=== PATIENT | male | born 1980 | race Caucasian/White ===

== ENCOUNTER 2017-03-17 22:09 | Emergency (ER) | payer MEDICAID ==
[~2017-03-17] VITALS: Ht 172.7 cm; Wt 95.3 kg
[2017-03-17] MEDS ORDERED: NKM (22:16)
[2017-03-17 22:22] VITALS: BP 141/91
[2017-03-17] MEDS ORDERED: Norco 5mg/325mg tab PO ONE (22:45)
[2017-03-17] MEDS ORDERED: IBUPROFEN600 MG ORAL (23:50)
[2017-03-17 23:53] VITALS: BP 141/91
--- NOTE | 2017-03-18 03:28 | Emergency Room Report ---
History of Present Illness General Chief Complaint: Multiple Trauma/Fall Source: Patient Present Illness HPI 37-year-old male presents to ED complaining of right hand and wrist pain status post fall. States a mechanical trip and fall today. Landing on his right hand and wrist. Denies any other injuries. Patient states pain is sharp, 8/10, nonradiating. Patient is concerned that he broke this wrist recently. No other aggravating relieving factors. Denies any other associated symptoms Allergies: Coded Allergies: No Known Allergies (Unverified , 03/17/17) Patient History Past Medical History: none Past Surgical History: none Pertinent Family History: none Social History: Denies: smoking, alcohol use, drug use Immunizations: UTD Reviewed Nursing Documentation: PMH: Agreed, PSxH: Agreed Nursing Documentation-PMH Past Medical History: No Stated History Review of Systems All Other Systems: negative except mentioned in HPI Physical Exam Vital Signs Date Time Temp Pulse Resp B/P (MAP) Pulse Ox O2 Delivery O2 Flow Rate FiO2 03/17/17 22:12 98.8 112 16 141/91 94 Room Air Sp02 EP Interpretation: reviewed, normal General Appearance: no apparent distress, alert, GCS 15, non-toxic Head: normocephalic, atraumatic Eyes: bilateral eye normal inspection, bilateral eye PERRL ENT: hearing grossly normal, normal pharynx, no angioedema, normal voice Neck: full range of motion, supple/symm/no masses Respiratory: chest non-tender, lungs clear, normal breath sounds, speaking full sentences Cardiovascular #1: regular rate, rhythm, no edema Cardiovascular #2: 2+ carotid (R), 2+ carotid (L), 2+ radial (R), 2+ radial (L) , 2+ dorsalis pedis (R), 2+ dorsalis pedis (L) Gastrointestinal: normal bowel sounds, non tender, soft, non-distended, no guarding, no rebound Rectal: deferred Genitourinary: normal inspection, no CVA tenderness Musculoskeletal: back normal, gait/station normal, normal range of motion, tender - R wrist Neurologic: alert, oriented x3, responsive, motor strength/tone normal, sensory intact, speech normal Psychiatric: judgement/insight normal, memory normal, mood/affect normal, no suicidal/homicidal ideation Reflexes: 3+ bicep (R), 3+ bicep (L), 3+ tricep (R), 3+ tricep (L), 3+ knee (R) , 3+ knee (L) Skin: normal color, no rash, warm/dry, well hydrated Lymphatic: no adenopathy Procedures Splinting Splinting : Pre-Made Type: velcro Splint: wrist Pre-Proc Neuro Vasc Exam: normal Post-Proc Neuro Vasc Exam: normal Patient Tolerated: Well Complications: None Medical Decision Making Diagnostic Impression: Primary Impression: Wrist injury Qualified Codes: S69.91XA - Unspecified injury of right wrist, hand and finger (s), initial encounter ER Course Hospital Course 37-year-old M presents to ED complaining of R wrist pain s/p trip and fall Differential diagnoses include: Fracture, dislocation, sprain, contusion Clinical course Patient placed on stretcher. After initial history and physical, I ordered pain medications and Xrays of R hand/wrist Xrays prelim read shows no acute fracture/dislocation. placed in wrist splint Diagnosis - wrist injury Stable and discharged to home with prescription for Motrin. apply ice, keep elevated. weight bear as tolerated. Followup with PMD. Return to ED if symptoms recur or worsen Other X-Ray Diagnostic Results Other X-Ray Diagnostic Results #1: X-Ray ordered: R hand # of Views/Limited Vs Complete: 3 View Indication: Pain EP Interpretation: Yes Interpretation: no dislocation, no soft tissue swelling, no fractures Impression: No acute disease Electronically Signed by: Electronically signed by Daniel Mariee MD Other X-Ray Diagnostic Results #2: X-Ray ordered: Right wrist # of Views/Limited Vs Complete: 3 View Indication: Pain EP Interpretation: Yes Interpretation: no dislocation, no soft tissue swelling, no fractures Impression: No acute disease Electronically Signed by: Electronically signed by Daniel Mariee MD Last Vital Signs Date Time Temp Pulse Resp B/P (MAP) Pulse Ox O2 Delivery O2 Flow Rate FiO2 03/17/17 23:53 98.8 16 141/91 94 Room Air 03/17/17 22:22 86 Status: improved Disposition: HOME, SELF-CARE Condition: Stable Scripts Ibuprofen* (MOTRIN*) 600 Mg Tablet 600 MG ORAL Q8H Y for For Pain, #30 TAB 0 Refills Prov: DANIEL MARIEE M.D. 03/17/17 Patient Instructions: Wrist Pain, [id number] DANIEL MARIEE M.D. Mar 18, 2017 03:28
--- NOTE | 2017-03-18 10:40 | Diagnostic Imaging Report ---
Indication: Pain Findings: 3 views of the right wrist were obtained. No acute fractures identified. No malalignment seen. Soft tissues are unremarkable. Impression: Negative study
--- NOTE | 2017-03-18 10:40 | Diagnostic Imaging Report ---
Indication: pain Findings: 3 views of the right hand were obtained. Normal bony mineralization and alignment are demonstrated. No acute fractures, erosions, or periosteal reaction are seen. Soft tissues are unremarkable. Impression: No acute findings.
== END 2017-03-17 23:53 | disposition home or self-care (01) ==
LOC: EMR 23:15
DX: M79.641 Pain in right hand (principal); S69.81XA Other specified injuries of right wrist, hand and finger(s), initial encounter; W01.0XXA Fall on same level from slipping, tripping and stumbling without subsequent striking against object, initial encounter; Y92.89 Other specified places as the place of occurrence of the external cause
CPT/HCPCS: 99284

== ENCOUNTER 2018-06-16 16:51 | Emergency (ER) | payer MEDICAID ==
[~2018-06-16] VITALS: Ht 172.7 cm; Wt 75.3 kg
[~2018-06-16 16:51] MED LIST: IBUPROFEN600 MG ORAL; NKM
[2018-06-16 17:10] VITALS: BP 105/62
--- NOTE | 2018-06-16 17:10 | NUR ---
ED Nurse Note: pt walked in c/o abd pain, n/v/d started today, denies eating anything unusual. Pt AA&ox4, gcs=15, skin warm and dry, resp even and unlabored, -n/v/d, ambulates w/ steady gait. Pt on equipment monitor phototypesetting, vss, and kid at the bedside, will continue to monitor.
--- NOTE | 2018-06-16 17:16 | Emergency Room Report ---
History of Present Illness General Chief Complaint: Nausea, Vomiting, and Diarrhea Source: Patient Present Illness HPI Patient presents with complaints of vomiting and diarrhea Reports that he has a history of fatty liver Patient reports taking PCP and marijuana and feels that this exacerbated her symptoms Denies any fevers denies any chest pain denies any rash Pain is epigastric and bilateral abdomen and pressure like Allergies: Coded Allergies: No Known Allergies (Unverified , 06/16/18) Patient History Past Medical History: see triage record Pertinent Family History: none Reviewed Nursing Documentation: PMH: Agreed; PSxH: Agreed Nursing Documentation-PMH Past Medical History: No History, Except For Review of Systems All Other Systems: negative except mentioned in HPI Physical Exam Vital Signs Date Time Temp Pulse Resp B/P (MAP) Pulse Ox O2 Delivery O2 Flow Rate FiO2 06/16/18 17:01 99.3 119 16 100/62 94 Room Air Sp02 EP Interpretation: reviewed, normal General Appearance: well appearing, no apparent distress Head: normocephalic, atraumatic Eyes: bilateral eye PERRL, bilateral eye EOMI ENT: hearing grossly normal, normal pharynx, TMs + canals normal, uvula midline Neck: full range of motion, supple, no meningismus, no bony tend Respiratory: lungs clear, normal breath sounds, no rhonchi, no respiratory distress, no retraction, no accessory muscle use Cardiovascular #1: normal peripheral pulses, regular rate, rhythm, no edema, no gallop, no JVD, no murmur Gastrointestinal: normal bowel sounds, non tender, soft, no mass, no organomegaly, non-distended, no guarding, no hernia, no pulsatile mass, no rebound Genitourinary: no CVA tenderness Musculoskeletal: normal inspection Neurologic: oriented x3, responsive, buffer copper III-XII nml as tested, motor strength/ tone normal, sensory intact Psychiatric: mood/affect normal Skin: normal color, no rash, warm/dry, palpation normal Lymphatic: normal inspection, no adenopathy Medical Decision Making Diagnostic Impression: Primary Impression: Nausea, vomiting, and diarrhea Additional Impression: Substance abuse ER Course With the history exam and presentation, multiple differentials considered, including but not limited to appendicitis, gastritis, cholecystitis, diverticulitis Patient provided with anti-emetics pain medication and hydration kidney function is elevated I discussed this with the patient and family PCP and other drug abuse can have irreversible damage to the patient's organs he requires repeat blood work to evaluate the kidney function in the next 3 months However requires more urgent follow-up the next several days with primary physician Labs Test 06/16/18 18:00 White Blood Count 10.6 K/UL (4.8-10.8) Red Blood Count 6.27 M/UL (4.70-6.10) Hemoglobin 18.2 G/DL (14.2-18.0) Hematocrit 56.6 % (42.0-52.0) Mean Corpuscular Volume 90 FL (80-99) Mean Corpuscular Hemoglobin 29.1 PG (27.0-31.0) Mean Corpuscular Hemoglobin Concent 32.2 G/DL (32.0-36.0) Red Cell Distribution Width 11.7 % (11.6-14.8) Platelet Count 229 K/UL (150-450) Mean Platelet Volume 5.4 FL (6.5-10.1) Neutrophils (%) (Auto) % (45.0-75.0) Lymphocytes (%) (Auto) % (20.0-45.0) Monocytes (%) (Auto) % (1.0-10.0) Eosinophils (%) (Auto) % (0.0-3.0) Basophils (%) (Auto) % (0.0-2.0) Differential Total Cells Counted 100 Neutrophils % (Manual) 93 % (45-75) Lymphocytes % (Manual) 3 % (20-45) Monocytes % (Manual) 4 % (1-10) Eosinophils % (Manual) 0 % (0-3) Basophils % (Manual) 0 % (0-2) Band Neutrophils 0 % (0-8) Platelet Estimate Adequate Platelet Morphology Normal Red Blood Cell Morphology Normal Sodium Level 136 MMOL/L (136-145) Potassium Level 5.2 MMOL/L (3.5-5.1) Chloride Level 98 MMOL/L (98-107) Carbon Dioxide Level 27 MMOL/L (21-32) Anion Gap 11 mmol/L (5-15) Blood Urea Nitrogen 23 mg/dL (7-18) Creatinine 2.4 MG/DL (0.55-1.30) Estimat Glomerular Filtration Rate 30.4 mL/min (>60) Glucose Level 110 MG/DL (74-106) Calcium Level 9.5 MG/DL (8.5-10.1) Total Bilirubin 0.5 MG/DL (0.2-1.0) Aspartate Amino Transf (AST/SGOT) 22 U/L (15-37) Alanine Aminotransferase (ALT/SGPT) 41 U/L (12-78) Alkaline Phosphatase 82 U/L (46-116) Total Protein 8.6 G/DL (6.4-8.2) Albumin 4.5 G/DL (3.4-5.0) Globulin 4.1 g/dL Albumin/Globulin Ratio 1.1 (1.0-2.7) Lipase 74 U/L (73-393) Last Vital Signs Date Time Temp Pulse Resp B/P (MAP) Pulse Ox O2 Delivery O2 Flow Rate FiO2 06/16/18 17:01 99.3 119 16 100/62 94 Room Air Status: improved Disposition: HOME, SELF-CARE Condition: Improved Scripts Mag Hydrox/Al Hydrox/Simeth (MAALOX MAXIMUM STRENGTH SUSP) 355 Ml Oral.susp 10 ML PO QHS for 5 Days, ML Prov: Angélica Duron DO 06/16/18 Famotidine (PEPCID AC) 20 Mg Tablet 20 MG PO DAILY, #12 TAB Prov: Angélica Duron DO 06/16/18 Ondansetron (Zofran) 4 Mg Tablet 4 MG ORAL Q6H PRN for Nausea & Vomiting, #12 TAB Prov: Angélica Duron DO 06/16/18 Additional Instructions: Patient is provided with the discharge instructions notified to follow up with primary doctor in the next 2-3 days otherwise return to the er with any worsening symptoms. Please note that this report is being documented using [employer] technology. This can lead to erroneous entry secondary to incorrect interpretation by the dictating instrument. Angélica Duron DO Jun 16, 2018 17:16
[2018-06-16 18:17] LABS: HEMATOCRIT 56.6 % (42.0-52.0); MEAN CORPUSCULAR VOLUME 90 FL (80-99); PLATELET COUNT 229 K/UL (150-450); RED BLOOD COUNT 6.27 M/UL (4.70-6.10); RED CELL DISTRIBUTION WIDTH 11.7 % (11.6-14.8); WHITE BLOOD COUNT 10.6 K/UL (4.8-10.8)
[2018-06-16 18:19] LABS: HEMOGLOBIN 18.2 G/DL (14.2-18.0)
[2018-06-16 18:36] LABS: ANION GAP 11 mmol/L (5-15); BLOOD UREA NITROGEN 23 mg/dL (7-18); CALCIUM 9.5 MG/DL (8.5-10.1); CARBON DIOXIDE 27 MMOL/L (21-32); CHLORIDE 98 MMOL/L (98-107); CREATININE 2.4 MG/DL (0.55-1.30); POTASSIUM 5.2 MMOL/L (3.5-5.1); SODIUM 136 MMOL/L (136-145)
[2018-06-16 18:40] LABS: ALANINE AMINOTRANSFERASE 41 U/L (12-78); ALBUMIN 4.5 G/DL (3.4-5.0); ALBUMIN/GLOBULIN RATIO 1.1 (1.0-2.7); ALKALINE PHOSPHATASE 82 U/L (46-116); ASPARTATE AMINO TRANSFERASE 22 U/L (15-37); BILIRUBIN,TOTAL 0.5 MG/DL (0.2-1.0)
[2018-06-16] MEDS ORDERED: DiphenhydrAMINE 50mg/ml Inj IVP ONE (18:45)
[2018-06-16] MEDS ORDERED: Metoclopramide 10mg/2ml Inj IVP ONE (18:45)
[2018-06-16] MEDS ORDERED: PEPCID AC20 M2 PO (18:49)
[2018-06-16] MEDS ORDERED: MAALOX MAXIMUM355 M1 PO (18:49)
[2018-06-16] MEDS ORDERED: ZOFRAN4 M1 ORAL (18:49)
[2018-06-16 19:30] VITALS: BP 118/68
--- NOTE | 2018-06-16 19:30 | NUR ---
ED Nurse Note: pt discharge instruction provided w/ prescription, pt verbalized understanding and agrees with plan, pt education done, pt spouse member at the bedside, pt advised to stop using illegal drugs, follow up with primary provider, iv d/c dressing applied, wristband removed. pt ambulatory, vss.
--- NOTE | 2018-06-17 16:00 | NUR ---
ED Nurse Note: attempted documenting waste on pyxis system last night but unable to do it, called pharmacy to notify, pharmacy states when the pt is discharged no longer able to document unwitnessed waste. Witness GOLDIE Garcia.
== END 2018-06-16 19:30 | disposition home or self-care (01) ==
LOC: EMR 17:48
DX: R11.2 Nausea with vomiting, unspecified (principal); R19.7 Diarrhea, unspecified; F19.10 Other psychoactive substance abuse, uncomplicated
CPT/HCPCS: 36415; 80053; 83690; 85007; 85025; 96361; 96374; 96375; 99284; J1200; J2405; J2765; S0028

== ENCOUNTER 2019-06-08 20:53 | Emergency (ER) | payer MEDICAID, OTHER ==
[~2019-06-08] VITALS: Ht 210.8 cm; Wt 77.1 kg
[~2019-06-08 20:53] MED LIST changes: +MAALOX MAXIMUM355 M1 PO; +PEPCID AC20 M2 PO; +ZOFRAN4 M1 ORAL
--- NOTE | 2019-06-08 21:12 | NUR ---
ED Nurse Note: Patient walked in to ED c/o CP x1 month. Patient states he did pcp 3 days ago. No SOB. Breathing even and unlabored. VSS. Family at bedside.
--- NOTE | 2019-06-08 21:22 | NUR ---
ED Nurse Note: Blood collected and sent to lab.
--- NOTE | 2019-06-08 21:24 | Emergency Room Report ---
History of Present Illness General Chief Complaint: Chest Pain Source: Patient Present Illness HPI This is a 39-year-old male with no past medical history. He has a history of methamphetamine abuse. He presents with chief complaint of chest pain. This is a chronic problem ongoing for a couple months. It intermittently. It some tightness in his chest. No radiation. No nausea no vomiting pain no fever chills. No exertional component. Pain is 7 out of 10. Nothing made it better. Nothing made it worse. Complaint of left thumb pain. He said he injured it 4 weeks ago. He said he was horse playing and heard a crack. He did not do anything about it. Since then is been painful with movement. He there is some hardness to it. Denies any other injury. Allergies: Coded Allergies: No Known Allergies (Unverified , 06/16/18) Patient History Past Medical History: see triage record, old chart reviewed Past Surgical History: none Pertinent Family History: none Social History: Reports: smoking, drug use Immunizations: other Reviewed Nursing Documentation: PMH: Agreed; PSxH: Agreed Nursing Documentation-PMH Past Medical History: No Stated History Review of Systems Eye: Denies: eye pain, blurred vision ENT: Denies: ear pain, nose congestion, throat swelling Respiratory: Denies: cough, shortness of breath Cardiovascular: Reports: chest pain; Denies: palpitations Gastrointestinal: Denies: abdominal pain, diarrhea, nausea, vomiting Musculoskeletal: Reports: joint pain; Denies: back pain Skin: Denies: rash Neurological: Denies: headache, numbness Endocrine: Denies: increased thirst, increased urine Hematologic/Lymphatic: Denies: easy bruising All Other Systems: negative except mentioned in HPI Physical Exam Vital Signs Date Time Temp Pulse Resp B/P (MAP) Pulse Ox O2 Delivery O2 Flow Rate FiO2 06/08/19 21:08 97.9 72 12 114/78 (90) 96 Room Air Vitals normal Sp02 EP Interpretation: reviewed, normal General Appearance: well appearing, no apparent distress, alert Head: normocephalic, atraumatic Eyes: bilateral eye PERRL, bilateral eye EOMI ENT: hearing grossly normal, normal pharynx Neck: full range of motion, supple, no meningismus Respiratory: chest non-tender, lungs clear, normal breath sounds Cardiovascular #1: regular rate, rhythm, no murmur Gastrointestinal: normal bowel sounds, non tender, no mass, no organomegaly, no bruit, non-distended Musculoskeletal: back normal, normal range of motion, gait/station normal, tender - Left thumb: He has tenderness to the ulnar aspect of the MCP joint. There is calcified hardness to that area. Psychiatric: mood/affect normal Medical Decision Making Diagnostic Impression: Primary Impression: Chest pain Qualified Codes: R07.9 - Chest pain, unspecified Additional Impressions: Substance abuse Left thumb sprain Qualified Codes: S63.642A - Sprain of metacarpophalangeal joint of left thumb , initial encounter ER Course Patient presents with atypical chest pain. This been ongoing for months. I suspect this may be musculoskeletal type of pain. He does have risk factor with drug abuse. He may benefit from a outpatient stress test. There is no evidence of any fracture on his thumb. May have ligament injury. Will discharge home. EKG Diagnostic Results Rate: normal Rhythm: NSR ST Segments: no acute changes Rhythm Strip Diag. Results EP Interpretation: yes Rate: 69 Other X-Ray Diagnostic Results Other X-Ray Diagnostic Results : X-Ray ordered: Left thumb x-rays # of Views/Limited Vs Complete: 3 View Indication: Pain EP Interpretation: Yes Interpretation: no dislocation, no soft tissue swelling, no fractures Impression: No acute disease Electronically Signed by: Pio Andrade MD Last Vital Signs Date Time Temp Pulse Resp B/P (MAP) Pulse Ox O2 Delivery O2 Flow Rate FiO2 06/08/19 21:08 97.9 72 12 114/78 (90) 96 Room Air Status: improved Disposition: HOME, SELF-CARE Condition: Stable Scripts Ibuprofen* (MOTRIN*) 600 Mg Tablet 600 MG ORAL THREE TIMES A DAY, #30 TAB 0 Refills Prov: Pio Andrade MD 06/08/19 Patient Instructions: Nonspecific Chest Pain Additional Instructions: Follow-up with your doctor in 7 days. Abstain from drugs abuse. You may need a referral to see a seasonal sales associate and get stress testing on your heart. You may need an MRI of your thumb and orthopedic referral. Return if symptoms worsen. Pio Andrade MD Jun 08, 2019 21:24
--- NOTE | 2019-06-08 21:34 | NUR ---
ED Nurse Note: Xray at bedside.
[2019-06-08 22:12] VITALS: BP 114/78
[2019-06-08] MEDS ORDERED: IBUPROFEN600 MG ORAL (22:20)
[2019-06-08 22:27] VITALS: BP 114/78
--- NOTE | 2019-06-08 22:27 | NUR ---
ED Nurse Note: Pt cleared by ERMD for discharge. DC instructions/prescription was given and explained to pt and verbalized understanding of teachings. All medical deviecs such as ID band removed. Pt is AAO x4, ambulatory and left with all personal belongings. Accompanied by family members.
--- NOTE | 2019-06-09 14:34 | Diagnostic Imaging Report ---
Indication: Injury to the thumb Findings: 3 views of the left thumb were obtained. No acute fractures, malalignment, erosions, or periosteal reaction are seen. Soft tissues are unremarkable. Impression: No acute findings.
== END 2019-06-08 22:27 | disposition home or self-care (01) ==
LOC: EMR 21:30
DX: R07.9 Chest pain, unspecified (principal); S63.642A Sprain of metacarpophalangeal joint of left thumb, initial encounter; F19.10 Other psychoactive substance abuse, uncomplicated; Y93.83 Activity, rough housing and horseplay; F17.200 Nicotine dependence, unspecified, uncomplicated
CPT/HCPCS: 73140; 84484; 93005; Z7502; 99283

== ENCOUNTER 2019-10-15 13:17 | Emergency (ER) | payer OTHER ==
[~2019-10-15] VITALS: Ht 172.7 cm; Wt 90.7 kg
[2019-10-15 13:25] VITALS: BP 151/93
--- NOTE | 2019-10-15 13:33 | NUR ---
ED Nurse Note: Patient brought in by RA 68 picked up from a vehicle due to overdose of PCP. EMS, Noted pinpoint pupils. Pt is ALOC but no apparent physical trauma. Patient AAO x2, HR 116 other VSS at this time, skin is warm to touch, patient confused, keep asking" Where am I"
--- NOTE | 2019-10-15 13:35 | Emergency Room Report ---
History of Present Illness General Chief Complaint: Overdose Source: Patient, EMS Present Illness HPI Disclaimer: Please note that this report is being documented using [employer] technology. This can lead to erroneous entry secondary to incorrect interpretation by the dictating instrument. HPI: 39-year-old male presents for evaluation of bizarre behavior. According to EMS the patient was behaving erratically out in public and bystander called 911 for evaluation. They were concerned over substance abuse and found the patient tachycardic. He was brought in for medical evaluation. He currently has no complaints and states he has no medical reason to be in the emergency department. He admits to drinking rubbing alcohol earlier today, approximately half a bottle at 10 AM, but denies drug use. Denies SI/HI. Denies chest pain, shortness of breath, sore throat, nasal congestion, vomiting, diarrhea, recent fever, chills or other changes in his health. PMH: Denies PSH: Denies Allergies: Denies Social Hx: Daily alcohol use, daily tobacco use, denies drug use Allergies: Coded Allergies: No Known Allergies (Unverified , 06/16/18) UNABLE TO ASSESS (Unverified , 10/15/19) COVID-19 Screening Contact w/high risk pt: No Recent Travel to affected area: No Experienced COVID-19 symptoms?: No Review of Systems All Other Systems: negative except mentioned in HPI Physical Exam Vital Signs Date Time Temp Pulse Resp B/P (MAP) Pulse Ox O2 Delivery O2 Flow Rate FiO2 10/15/19 13:14 98.8 138 16 151/100 (117) 99 Room Air General: Awake and alert, no acute distress HEENT: NC/AT. EOMI. Cardiovascular: Tachycardic. S1 and S2 normal. No murmur appreciated Resp: Normal work of breathing. No cough, wheezing or crackles appreciated Abdomen: Abdomen is soft, nondistended. Nontender Skin: Intact. No abrasions, laceration or rash over the exposed skin MSK: Normal tone and bulk. Moving all extremities. No obvious deformity. Neuro: Awake and alert. Mentating appropriately. Medical Decision Making Diagnostic Impression: Primary Impression: Tachycardia ER Course This is a 39-year-old male brought in for medical evaluation of bizarre behavior and suspected intoxication. Differential includes was not limited to dehydration, alcohol use, toxic alcohol ingestion, stimulant use, anxiety to name a few. He is awake, alert and denying any suicidality. He is tachycardic but vital signs are otherwise within normal limits. Will give IV fluids, check broad labs, discussed with poison control and monitor in the emergency department. EKG Diagnostic Results EKG Time: 13:31 Rate: tachycardiac ST Segments: no acute changes Other Impression Sinus tachycardia with a normal axis, normal intervals and no ST segment changes. Rhythm Strip Diag. Results Rhythm Strip Time: 13:31 EP Interpretation: yes Rate: 120s Rhythm: no PVC's, no ectopy Reevaluation Time: 13:47 Last Vital Signs Date Time Temp Pulse Resp B/P (MAP) Pulse Ox O2 Delivery O2 Flow Rate FiO2 20 13:14 98.8 138 16 151/100 (117) 99 Room Air Reevaluation Impression Patient's EKG showed sinus tachycardia but no ischemic changes. Shortly after labs were drawn the patient got up and asked to leave the emergency department. He did not want to stay for his lab results. He is ambulating with steady gait and mentating appropriately. I discussed with him that his abnormally high heart rate may indicate a potentially serious life-threatening illness and that he should stay for his lab results. He refused and left the emergency department AGAINST MEDICAL ADVICE. IV line was removed prior to patient departure. Disposition: AGAINST MEDICAL ADVICE Condition: Stable Barry Ng MD Oct 15, 2019 13:35
[2019-10-15 13:43] VITALS: BP 156/86
--- NOTE | 2019-10-15 13:45 | NUR ---
ER DISCHARGE NOTE: AMA. All medical deviecs such as ID band and IV were removed. Pt is AAO x 4, ambulatory and left with all personal belongings.
--- NOTE | 2019-10-15 13:46 | NUR ---
ED Nurse Note: AMA. All medical deviecs such as ID band and IV were removed. Pt is AAO x 2, ambulatory and left with all personal belongings.
--- NOTE | 2019-10-15 13:46 | NUR ---
ED Nurse Note: Patient suddenly got up and left without signing AMA. AO x 2 and IV was taken out.
--- NOTE | 2019-10-15 13:55 | NUR ---
Note [email or web address] in ED - 10/15/19 at 1413 by [email or web address] ER DISCHARGE NOTE: AMA. All medical deviecs such as ID band and IV were removed. Pt is AAO x 2, ambulatory and left with all personal belongings.
[2019-10-15 13:56] LABS: BASOPHILS % (AUTO) 1.4 % (0.0-2.0); EOSINOPHILS % (AUTO) 0.6 % (0.0-3.0); HEMOGLOBIN 15.7 G/DL (14.2-18.0); LYMPHOCYTES % (AUTO) 23.1 % (20.0-45.0); MEAN CORPUSCULAR VOLUME 84 FL (80-99); NEUTROPHILS % (AUTO) 67.9 % (45.0-75.0); PLATELET COUNT 277 K/UL (150-450); RED BLOOD COUNT 5.35 M/UL (4.70-6.10); RED CELL DISTRIBUTION WIDTH 11.4 % (11.6-14.8); WHITE BLOOD COUNT 10.6 K/UL (4.8-10.8)
[2019-10-15 14:12] LABS: ANION GAP 11 mmol/L (5-15); BLOOD UREA NITROGEN 12 mg/dL (7-18); CALCIUM 9.3 MG/DL (8.5-10.1); CARBON DIOXIDE 27 MMOL/L (21-32); CHLORIDE 105 MMOL/L (98-107); CREATININE 1.1 MG/DL (0.55-1.30); POTASSIUM 4.1 MMOL/L (3.5-5.1); SODIUM 143 MMOL/L (136-145)
[2019-10-15 14:16] LABS: ALANINE AMINOTRANSFERASE 68 U/L (12-78); ALBUMIN 4.5 G/DL (3.4-5.0); ALBUMIN/GLOBULIN RATIO 1.1 (1.0-2.7); ALKALINE PHOSPHATASE 74 U/L (46-116); ASPARTATE AMINO TRANSFERASE 33 U/L (15-37); BILIRUBIN,TOTAL 0.2 MG/DL (0.2-1.0)
== END 2019-10-15 13:51 | disposition left against medical advice (07) ==
LOC: EDBD 13:17 → EMR 13:32
DX: R00.0 Tachycardia, unspecified (principal)
CPT/HCPCS: 36415; 80053; 85025; 93005; G0480; G0481; Z7502; 99283